=== PATIENT | male | born 1955 | race Caucasian/White ===

== ENCOUNTER 2021-05-13 12:15 | Outpatient (REF) | payer MEDICARE, OTHER, SELFPAY ==
[2021-05-13 13:33] LABS: MANUAL DIFF FLAG NO
[2021-05-13 13:37] LABS: Basophils Percent Auto 0.8 % (0-2); Eosinophils Absolute Auto 0.2 X10*3/uL (0.0-0.4); Eosinophils Percent Auto 4.5 % (0-4); Hematocrit 40.3 % (42-52); Hemoglobin 13.4 g/dl (14.0-18.0); Imm Gran Abs Auto 0.02 X10*3/uL (0.00-0.03); Imm Gran Pct Auto 0.4 % (0.0-0.4); Lymphocytes Absolute Auto 1.4 X10*3/uL (1.2-4.9); Lymphocytes Percent Auto 27.6 % (20-40); Mean Corpuscular HGB Conc 33.3 g/dl (31.0-36.0); Mean Corpuscular Hemoglobin 30.7 pg (27.0-33.0); Mean Corpuscular Volume 92.4 fL (80-98); Mean Platelet Volume 10.1 fL (9.4-12.4); Monocytes Absolute Auto 0.4 X10*3/uL (0.1-1.2); Monocytes Percent Auto 8.2 % (2-11); Neutrophils Absolute Auto 2.9 X10*3/uL (2.0-8.3); Neutrophils Percent Auto 58.5 % (45-73); Platelet Count 195 X10*3/uL (160-400); Red Blood Count 4.36 X10*6/uL (4.60-5.80); Red Cell Distribution Width 12.6 % (11.0-16.0); White Blood Count 4.9 X10*3/uL (4.8-10.8)
[2021-05-13 14:05] LABS: Alanine Aminotransferase 46 U/L (0-40); Albumin Level 4.3 g/dL (3.5-5.0); Alkaline Phosphatase 66 U/L (39-117); Aspartate Amino Transferase 30 U/L (5-37); Bilirubin Direct 0.3 mg/dL (0.0-0.5); Bilirubin Total 0.8 mg/dL (0.0-1.0); Iron 82 mcg/dL (45-160); Percent Iron Saturation 25 % (15-50); Total Iron Binding Capacity 326 mcg/dL (228-428); Unsaturated Iron Binding 244 ug/dL
[2021-05-13 14:17] LABS: Hepatitis A Antibody IgG Nonreactive (Nonreactive)
[2021-05-13 14:20] LABS: Ferritin 387 ng/mL (20-250)
[2021-05-16 04:27] LABS: HBc Num1 0.06 S/CO (0.00-0.79); Hepatitis B Core Antibody Nonreactive (Nonreactive); ~HepC Num1 0.07 S/CO (0.00-0.79); ~Hepatitis C Antibody Nonreactive (Nonreactive)
[2021-05-16 04:36] LABS: HBS Num1 1.65 mIU/mL (0-7.99); HBsAGNum1 0.51 S/CO (0.00-0.99); Hepatitis B Surface Antigen Negative (Negative); ~Hepatitis B Surface Antibody NONREACTIVE (Nonreactive)
[2021-05-16 13:26] LABS: Mitochondrial Antibodies NEGATIVE (NEGATIVE)
[2021-05-18 11:31] LABS: Smooth Muscle Antibody <20 U (<20)
== END 2021-05-13 12:16 | disposition home or self-care (01) ==
LOC: HO.10HDL 12:15
PROVIDERS: Visit Provider Internal Medicine Gastroenterology
DX: R79.89 Other specified abnormal findings of blood chemistry (principal)
CPT/HCPCS: 36415; 80076; 82728; 83540; 85025; 86255; 86256; 86704; 86706; 86708; 86803; 87340

== ENCOUNTER 2022-11-03 07:54 | Day surgery (SDC) | payer MEDICARE, OTHER, SELFPAY ==
[2022-11-03 07:59] VITALS: BMI 34.1
[2022-11-03] MEDS: Lactated Ringers 1,000 ML 50 ML IVCONT (08:14)
[2022-11-03 08:22] VITALS: BP 161/60; PULSE 50; RESP 18; TEMP 36.8; O2SAT 97
--- NOTE | 2022-11-03 08:51 | P.CONAN_ITS ---
[facility] Past Medical History Medical History GERD (gastroesophageal reflux disease) HTN (hypertension) Hyperlipidemia Peptic ulcer disease Surgical History Surgical History (Updated 11/02/22 @ 12:15 by Angelika Palm RN) H/O colonoscopy H/O esophagogastroduodenoscopy H/O sinus surgery History of Problems with Anesthesia: No Social History Social History Patient Tobacco Use Status: Former Tobacco user Are you DNR?: No Advance Directives: No Advance Directives Information Provided: Yes Nutrition Risks: No Nutritional Risk Meds Allergies Allergy/AdvReac Type Severity Reaction Status Date / Time No Known Allergies Allergy Verified 11/02/22 12:13 Active Medications: Current Medications Lactated Ringer's (Lr) 1,000 mls @ 50 mls/hr IVCONT .Q20H KAREN Last Admin: 11/03/22 08:14 Dose: 50 mls/hr Home Medications Medication Instructions Recorded Confirmed Last Taken Type atenolol 50 mg tablet mg 11/02/22 11/03/22 History atorvastatin 40 mg tablet 40 mg PO DAILY 11/02/22 11/02/22 Unknown History ibuprofen 200 mg tablet (Advil) mg 11/02/22 10/27/22 History lisinopril 20 1 tab PO DAILY 11/02/22 11/02/22 11/03/22 History mg-hydrochlorothiazide 25 mg tablet omeprazole 20 mg capsule,delayed 20 mg PO DAILY 11/02/22 11/02/22 11/03/22 History release Exam Exam Date and Time: November 03, 2022 0851 Height,Weight and Vital Signs: Height 5 ft 9 in Weight 104.901 kg Last Vital Signs Temp 98.2 F 11/03/22 08:22 Pulse 50 11/03/22 08:22 Resp 18 11/03/22 08:22 BP 161/60 H 11/03/22 08:22 Pulse Ox 97 11/03/22 08:22 O2 Del Method Room Air 11/03/22 08:22 Airway Mallampati Class: III TM Dist: >3cm Neck ROM: Full Denture: Upper and Lower Loose/Missing/Broken Teeth: Yes, Upper and Lower Heart: RRR Lungs: CTA Assessment and Plan Assessment Anesthesia Assessment: Anesthesia Plan Discussed and Chart Reviewed Final Anesthetic Review History of Problems with Anesthesia: No NPO: Yes ASA Class: II Final Preanesthetic Review: Meds/Allgs Chart Reviewed, Consent Obtained/Reviewed and Anes Risks/Benef Reviewed Patient Risk: Low Procedure Risk: Low Anesthetic Plan Anesthetic Plan: MAC: Disposition: Standard PACU
[2022-11-03 09:14] VITALS: BP 143/58
--- NOTE | 2022-11-03 09:39 | MHC.SHP ---
Pre-Procedural Eval Section A Date of Service: 11/03/22 Section B Chief Complaint: screening Details of Present Illness: see H&P Relevant Family History (Specify if Yes): No Relevant Social History: None Present Medications: see Short Stay Collaborative assessment Medical History: No relevant PMH History of Previous Operations: No relevant previous surgery Allergies: Allergies Allergy/AdvReac Type Severity Reaction Status Date / Time No Known Allergies Allergy Verified 11/02/22 12:13 Review of Systems Sugical H&P ROS: Negative: Constitution, Cardiovascular, Respiratory, Neurological, Psychiatric, Hem-Onc, Allergic/Immunologic, Gastrointestinal, Genitourinary, Musculoskeletal, Integumentary, Endocrine and Eyes/Ears/Nose/Throat Exam Surgical H&P Exam: Normal: HEENT, Normal: Heart, Normal: Lungs, Normal: Extremities, Normal: Abdomen, Normal: Skin and Normal: Neurological Plan Diagnosis/Plan: Unchanged I have reviewed the history and physical and performed a pertinent physical examination on my patient. No changes have occurred unless specified. Time Spent With Patient Time: Total time managing care of this patient today ____ minutes.
[2022-11-03 10:17] VITALS: BP 84/44; PULSE 43; RESP 20; TEMP 36.2; O2SAT 100
--- NOTE | 2022-11-03 10:20 | P.BOP_ITS ---
Brief Operative Note Date of Service: 11/03/22 Pre-op diagnosis: screening Post-op diagnosis: same Procedure: colonsocopy Surgeon: Len Garcia Anesthesia: MAC Was an Investigator Utility Bill Complaints used for this Procedure?: No Estimated blood loss (mL): 3 Pathology: other Condition: stable Disposition: PACU
[2022-11-03 10:27] VITALS: BP 107/57
[2022-11-03 10:33] VITALS: BP 130/65; PULSE 44; RESP 18; TEMP 36.4; O2SAT 97
--- NOTE | 2022-11-03 10:52 | OP_ITS ---
DATE OF SERVICE: 11/03/2022 SURGEON: Len Garcia MD INDICATIONS: Colon cancer screening and prior history of adenomatous colon polyps. PREOPERATIVE DIAGNOSIS: POSTOPERATIVE DIAGNOSIS: PROCEDURE PERFORMED: Colonoscopy to the terminal ileum with biopsy. ESTIMATED BLOOD LOSS: COMPLICATIONS: ANESTHESIA: Monitored anesthesia care. ASSISTANTS: SPECIMENS: DESCRIPTION OF PROCEDURE: A history and physical was performed. The risks and benefits of the procedure were explained to the patient. Informed consent was obtained. The patient was placed in the left lateral decubitus position. A digital rectal exam was performed and was found to be normal. The Olympus pediatric video colonoscope was introduced into the rectum and advanced to the cecum without difficulty. The cecum was identified by transillumination, palpation, and identification of ileocecal valve examination was performed. The scope was removed. He tolerated the procedure well and was returned to the recovery area in stable condition. FINDINGS: The terminal ileum was examined and appeared normal. The visualized colonic mucosa was normal. The quality of the prep was good. A single polyp was identified and removed with the biopsy forceps measuring less than 5 mm at 40 cm. No other polyps were identified. There was mild sigmoid diverticulosis. Retroflexed examination was normal. IMPRESSION: Colon polyp. RECOMMENDATION: Follow up the biopsy results. MD WILBUR Fitzgerald/CATINAL / [id number]
== END 2022-11-03 11:10 | disposition home or self-care (01) ==
PROVIDERS: Visit Provider Internal Medicine Gastroenterology
PROC: 0DJD8ZZ Inspection of Lower Intestinal Tract, Via Natural or Artificial Opening Endoscopic (ICD-10-PCS; CPT 45378; principal; 2022-11-03 09:10)
DX: Z12.11 Encounter for screening for malignant neoplasm of colon (principal); Z86.010 Personal history of colon polyps; D12.5 Benign neoplasm of sigmoid colon; K57.30 Diverticulosis of large intestine without perforation or abscess without bleeding; K21.9 Gastro-esophageal reflux disease without esophagitis; I10 Essential (primary) hypertension; E78.5 Hyperlipidemia, unspecified; Z87.11 Personal history of peptic ulcer disease; Z79.899 Other long term (current) drug therapy; Z79.1 Long term (current) use of non-steroidal anti-inflammatories (NSAID); Z86.16 Personal history of COVID-19; Z87.891 Personal history of nicotine dependence
CPT/HCPCS: 45380; 88305